=== PATIENT | female | born 1995 | race Caucasian/White ===

== ENCOUNTER 2023-08-25 04:28 | Emergency (ER) | payer BC, OTHER ==
[~2023-08-25] VITALS: Ht 157.5 cm; Wt 45.4 kg
[~2023-08-25 04:28] MED LIST: DULO20CA; FLUO10TA; RISP1TAB7
[2023-08-25] MEDS ORDERED: LORAZEPAM 1 MG TABLET ONE (04:40)
[2023-08-25] MEDS ORDERED: DIVALPROEX SODIUM 250 MG TABLET.DR PO ONE (04:40)
[2023-08-25] MEDS ORDERED: LORAZEPAM 1 MG TABLET PO ONE (05:00)
[2023-08-25] MEDS ORDERED: DIVALPROEX SODIUM 500 MG TABLET.DR PO ONE (05:00)
[2023-08-25 05:18] LABS: BASOPHILS % (AUTO) 0.5 % (0.0-2.0); EOSINOPHILS % (AUTO) 0.7 % (0.0-6.0); HEMATOCRIT 38 % (33-45); HEMOGLOBIN 13.2 g/dL (11.5-14.8); LYMPHOCYTES # (AUTO) 1.4 K/uL (0.8-4.8); MEAN CORPUSCULAR HEMOGLOBIN 32 PG (26.0-33.0); MEAN CORPUSCULAR HGB CONC 35 g/dl (31.0-36.0); MEAN CORPUSCULAR VOLUME 93 fL (82-100); MONOCYTES # (AUTO) 0.4 K/uL (0.1-1.30); MONOCYTES % (AUTO) 5.5 % (2.0-12.0); NEUTROPHILS # (AUTO) 4.6 K/uL (1.8-8.9); NEUTROPHILS % (AUTO) 71.3 % (43.0-81.0); PLATELET COUNT (AUTO) 263 K/uL (150-450); RED BLOOD CELL COUNT(AUTO) 4.06 MIL/uL (4.0-5.2); WHITE BLOOD COUNT (AUTO) 6.4 K/uL (4.3-11.0)
[2023-08-25 05:25] LABS: CALCIUM, SERUM 9.5 mg/dL (8.5-10.1); CARBON DIOXIDE 23 mmol/L (21-32); CHLORIDE 103 mmol/L (98-107); CREATININE 0.6 mg/dL (0.6-1.3); GLUCOSE 108 mg/dL (74-106); POTASSIUM 3.6 mmol/L (3.5-5.1); SODIUM SERUM 137 mmol/L (136-145); UREA NITROGEN, BLOOD 7 mg/dL (7-18)
[2023-08-25 05:31] LABS: ALANINE AMINOTRANSFERASE 21 U/L (12-78); ALBUMIN 4.5 g/dL (3.4-5.0); ALKALINE PHOSPHATASE 54 U/L (46-116); ASPARTATE AMINOTRANSFERASE 18 U/L (15-37); BILIRUBIN,DIRECT 0.2 mg/dL (0.0-0.2); BILIRUBIN,TOTAL 1.1 mg/dL (0.2-1.0); TOTAL PROTEIN, SERUM 7.7 g/dL (6.4-8.2)
[2023-08-25 05:33] LABS: ACETAMINOPHEN <10 ug/ml (10-30); ALCOHOL, BLOOD < 3 mg/dL (0-10); SALICYLATE 1.5 mg/dL (2.8-20.0)
[2023-08-25] MEDS ORDERED: DIVA500T2 PO (07:14)
[2023-08-25] MEDS ORDERED: LORA-259 PO (07:14)
[2023-08-25] MEDS ORDERED: OLAN5TAB3 PO (07:14)
[2023-08-25 07:30] VITALS: BP 123/78; TEMP 98; O2SAT 99
== END 2023-08-25 07:31 | disposition home or self-care (01) ==
LOC: ER 04:29
DX: F30.9 Manic episode, unspecified (principal); F41.9 Anxiety disorder, unspecified; R10.2 Pelvic and perineal pain; Z79.899 Other long term (current) drug therapy; Z90.49 Acquired absence of other specified parts of digestive tract
CPT/HCPCS: 36415; 80048-TC; 80076-TC; 84702-TC; 85025-TC; G0480

== ENCOUNTER 2024-07-30 04:01 | Emergency (ER) | payer OTHER ==
[~2024-07-30 04:01] MED LIST changes: +DIVA500T2 PO; +LORA-259 PO; +OLAN5TAB3 PO
== END 2024-07-30 05:28 | disposition left against medical advice (07) ==
LOC: ER 04:06
DX: F31.9 Bipolar disorder, unspecified (principal); Z53.21 Procedure and treatment not carried out due to patient leaving prior to being seen by health care provider